=== PATIENT | female | born 1975 | race Caucasian/White ===

== ENCOUNTER 2022-08-31 10:09 | Outpatient (CLI) | payer OTHER, SELFPAY ==
[2022-08-31 18:14] LABS: Chloride* 100 mmol/L (96-114); Potassium* 4.5 mmol/L (3.6-5.1); Sodium* 139 mmol/L (135-149)
[2022-08-31 18:17] LABS: Blood Urea Nitrogen* 14 mg/dL (5-24); Carbon Dioxide* 32 mmol/L (20-32); Cholesterol* 244 mg/dL (90-199); Creatinine* 0.7 mg/dL (0.5-1.5); Estimated Glomerular Filt Rate 106 ml/min
[2022-08-31 18:18] LABS: Calcium* 9.7 mg/dL (8.4-10.6); Glucose* 81 mg/dL (60-115); Triglycerides* 77 mg/dL (40-149)
[2022-08-31 18:38] LABS: HDL Cholesterol* 129 mg/dL (>=50); LDL Cholesterol Calculated 100 mg/dL (<100)
== END 2022-08-31 10:10 | disposition home or self-care (01) ==
PROVIDERS: PCP Family Medicine; Visit Provider Family Medicine
DX: Z00.00 Encounter for general adult medical examination without abnormal findings (principal); Z13.1 Encounter for screening for diabetes mellitus; Z13.29 Encounter for screening for other suspected endocrine disorder; Z13.6 Encounter for screening for cardiovascular disorders
CPT/HCPCS: 80048; 80061; 84443

== ENCOUNTER 2023-09-27 09:25 | Outpatient (CLI) | payer OTHER, SELFPAY | END 2023-09-27 09:26 | disposition home or self-care (01) | PROVIDERS: PCP Family Medicine; Visit Provider Family Medicine | DX: Z13.1 Encounter for screening for diabetes mellitus (principal); Z13.29 Encounter for screening for other suspected endocrine disorder | CPT/HCPCS: 80048; 84443 ==

== ENCOUNTER 2024-07-13 11:02 | Outpatient (CLI) | payer OTHER, SELFPAY ==
--- NOTE | 2024-07-13 | CRLHL7_ITS ---
For Patients: As a result of the Century Cures Act, medical imaging exams and procedure reports are released immediately into your electronic medical record. You may view this report before your referring provider. If you have questions, please contact your health care provider. Indication: ankle pain, unresponsive to care provider Technique: Right ankle 3 views Comparison: None Findings: Bones: Alignment is normal. No fractures or bone lesions. Joint spaces: Joint spaces are well maintained. No degenerative changes. Soft tissues: Varicose vein noted in the medial calf soft tissues. Impression: Normal osseous structures. Soft tissue varicosities. Dictated by Esau Ribeiro MD @ 07/13/2024 11:56:44 AM (Electronically Signed)
--- OUTSIDE RECORDS SUMMARY | 2024-07-13 07:45 | XMS_ITS | Continuity of Care Document ---
Author Organization [facility] Address [address] [place] [address] Assessment Encounter Date Assessment Date Assessment LastModified by Organization Details LastModified Time 06/17/2024 06/17/2024 ASSESSMENT: Patient is a good candidate for conservative care and the prognosis is for a favorable outcome that achieves the patients' goals. We discussed etiology, activity modifications, home care, and other treatment options. Initially, it is recommended that the patient receive in-office treatment 1 times per week for 8 weeks at which time a re-evaluation will be performed to determine an appropriate change in plan. Initially, treatment will focus on joint manipulation to restore range of motion and reduce pain. We will slowly progress to therapeutic exercises and activities to improve function, strength, and stability may also be used as warranted. If the patient is not responding as expected, more invasive procedures will be discussed along with a referral. All considerations above were discussed with the patient and questions answered to satisfaction. If the patient should have any additional questions, or should the condition evolve or worsen, the patient should not hesitate to contact our office. prieto Not available 06/18/2024 16:36:17 Plan of Treatment Reminders Order Date Submit Date Provider Last Modified By Organization Details Last Modified Time Details Appointments None record ed. Lab None record ed. Referral None record ed. Procedures None record ed. Surgeries None record ed. Imaging None record ed. Medication Orders None record ed. Patient TargetsNo targets recorded. Patient InstructionsNo instructions recorded. Reason for Referral None Reported. Problems Name Problem SNOMED Code Status Onset Date Resolution Date Notes Provider Name and Address Organization Details Recorded Time Thoracic segmental dysfunction 793722970 Active 2023 Arnol Palacios, BRY [address], [place], [address] , [facility] 4 16:36:18 Neck pain 80313984 Active 2023 Arnol Palacios DC [address], [place], [address] , [facility] 4 16:36:18 Lumbar segmental dysfunction 348765641 Active 2023 [facility] 4 11:08:12 Lesion of lumbar spine 312472811 Active 2023 Arnol Palacios DC [address], [place], [address] , [facility] 4 16:36:18 Cervical segmental dysfunction 312723521 Active 2023 Arnol Palacios DC [address], [place], [address] , [facility] 4 16:36:19 Problem Notes None recorded. Procedures Surgical History Date Name Laterality Status Provider Name and Address Organization Details Recorded Time 4 23982: Spinal manipulation , 3 to 4 regions active Regan ChanBRY [address], [place], [address], [facility] 07/07/2024 13:43:04 4 17493: Spinal manipulation , 3 to 4 regions completed Arnol Palacios DC [address], [place], [address], [facility] 06/18/2024 16:37:07 Imaging Results None recorded. Procedure Notes None recorded. Medical Equipment None Reported. Medications Name Sig Start Date Stop Date Status Note LastModified by Organization Details LastModified Time venlafaxine ER 75 mg capsule,extended release 24 hr active Not Available Not Availabl e Not Available venlafaxine ER 150 mg capsule,extended release 24 hr active Not Available Not Availabl e Not Available rizatriptan 10 mg disintegrating tablet active Not Available Not Available Not Available Vitals None Recorded Social History None recorded. Functional Status None recorded. Mental Status None recorded. Family History Nothing Reported. Medical History No medical history recorded. Gynecological HistoryNo gynecological history recorded. Obstetrics History GPAL:G 0 P 0 0 0 0 Past Encounters Encounter ID Performer Location Encounter Start Date Encounter Closed Date Diagnosis/Indication Diagnosis SNOMED-CT Code Diagnosis ICD10 Code [id number] Arnol Palacios DC [facility] [address] [place] [address] 06/17/2024 11:02:00 06/17/2024 16:40:10 Lesion of lumbar spine 416114788 M99.01 Neck pain 15576483 M54.2 Thoracic s egmental dysfunction 322654954 M99.02 Lumbar seg mental dysfunction 038562680 M99.03 Cervical s egmental dysfunction 823376403 M99.01 Health Concerns Section Related Observation LastModified by Organization Detai ls LastModified Time None Recorded Concern Status LastModified by Organization Details LastModified Time None Recorded Payers Encounter Date Sequence Insurance Name Policy Number Policy Gonzalez Covered Member ID Gonzalez Member ID Guarantor Name 06/17/2024 [facility] [id number] Daily Toño [id number] Daily Lundberg Notes Date Note Type Note Provider Name and Address Organization Details Recorded Time 06/17/2024 text/html HPI - Cervical SpineReported bypatient.Location: left Quality:aching Severity:moderate Duration:2 weeks Timing:gradual Alleviating Factors:ice Aggravating Factors:sitting Associated Symptoms:no numbness/tingling Arnol Palacios DC [address], [place], [address], [facility] 06/18/2024 16:37:48 OBGyn Episode No OBEpisode recorded.
--- OUTSIDE RECORDS SUMMARY | 2024-07-13 07:45 | XMS_ITS | Data Portability ---
Author Organization [place] [facility] Address [address] [place] [address] Assessment Encounter Date Assessment Date Assessment LastModified [...] Organization Details Recorded Time Thoracic segmental dysfunction 935341508 Active 2023 Arnol Palacios DC [address], [place], [address] , [facility] 4 16:36:18 Neck pain 95190904 Active 2023 Arnol Palacios DC [address], [place], [address] , [facility] 4 16:36:18 Lumbar segmental dysfunction 237393961 Active 2023 Not Available [facility] 4 11:08:12 Lesion of lumbar spine 116796509 Active 2023 Arnol Palacios DC [address], [place], [address] , [facility] 4 16:36:18 Cervical segmental dysfunction 948187908 Active 2023 Arnol Palacios DC [address], [place], [address] , [facility] 4 16:36:19 Problem Notes None recorded. Procedures Surgical History Date Name Laterality Status Provider Name and Address Organization Details Recorded Time 4 26492: Spinal manipulation , 3 to 4 regions active Regan BergBRY jimenes [address], [place], [address], [facility] 07/07/2024 13:43:04 4 78101: Spinal manipulation , 3 to 4 regions completed Arnol Palacios DC [address], [place], [address], [facility] 06/18/2024 16:37:07 Imaging Results None recorded. Procedure [...] Diagnosis/Indication Diagnosis SNOMED-CT Code Diagnosis ICD10 Code [id number] Arnol Palacios DC [facility] [address] [place] [address] 06/17/2024 11:02:00 06/17/2024 16:40:10 Lesion of lumbar spine 316327375 M99.01 Neck pain 27572411 M54.2 Thoracic s egmental dysfunction 610959713 M99.02 Lumbar seg mental dysfunction 826979580 M99.03 Cervical s egmental dysfunction 542391902 M99.01 Health Concerns Section Related Observation LastModified by Organization Detai ls LastModified Time None Recorded Concern Status LastModified by Organization Details LastModified Time None Recorded Advance Directives Directive None Recorded Payers Encounter Date Sequence Insurance Name Policy Number Policy Gonzalez Covered Member ID Gonzalez Member ID Guarantor Name 06/17/2024 [facility] [id number] Daily Dennissixto [id number] Daily Toño Notes Date Note Type Note Provider Name and Address Organization Details Recorded Time 06/17/2024 text/html HPI - Cervical SpineReported bypatient.Location: left Quality:aching Severity:moderate Duration:2 weeks Timing:gradual Alleviating Factors:ice Aggravating Factors:sitting Associated Symptoms:no numbness/tingling Arnol Palacios DC [address], [place], [address], [facility] 06/18/2024 16:37:48 OBGyn Episode No OBEpisode recorded.
--- NOTE | 2024-07-13 11:00 | CRLHL7_ITS ---
For Patients: As a result of the Century Cures Act, medical imaging exams and procedure reports are released immediately into your electronic medical record. You may view this report before your referring provider. If you have questions, please contact your health care provider. INDICATION: low back pain, unresponsive to home day care provider TECHNIQUE: 2-view lumbar spine. COMPARISON: none FINDINGS: Disc space narrowing noted at L4-5 with discogenic endplate change. Slight right lateral subluxation of L4 in relation to L5. Narrowing at the L3-4 disc space on the left. No vertebral body compression fracture. Facet degeneration L4-5 and L5-S1. IMPRESSION: Degenerative disc disease L4-5 and on the left at L3-4. Lower lumbar spine facet degeneration. Dictated by Esau Ribeiro MD @ 07/13/2024 11:58:08 AM (Electronically Signed)
== END 2024-07-13 11:03 | disposition home or self-care (01) ==
LOC: RAD 11:04
PROVIDERS: PCP Family Medicine; Visit Provider Chiropractor
DX: M54.50 Low back pain, unspecified (principal); M51.369 Other intervertebral disc degeneration, lumbar region without mention of lumbar back pain or lower extremity pain; M25.571 Pain in right ankle and joints of right foot
CPT/HCPCS: 72100; 73610